=== PATIENT | female | born 1955 | race Caucasian/White ===

== ENCOUNTER → 2020-08-22 15:35 | Outpatient (CLI) | payer BC, SELFPAY ==
--- NOTE | 2020-08-22 | DI.RAD.S_ITS ---
PROCEDURE: XR LUMBAR SPINE 2-3V INDICATIONS: LOW BACK PAIN TECHNIQUE: 3 views of the lumbar spine were acquired. COMPARISON: None. FINDINGS: Bones: No fracture. Grade 1 anterolisthesis of L4 on L5. Multilevel degenerative endplate sclerosis and spurring. Diffuse facet arthropathy. Mild narrowing of the L4-L5 and L5-S1 disc space. Mild levocurvature Soft tissues: Overlying bowel gas pattern is normal. No suspicious soft tissue calcifications. IMPRESSION: Lower lumbar spondylosis and mild levocurvature. Grade 1 anterolisthesis of L4 on L5. Facet arthropathy . Dictated by: Sawyer Martinez M.D. on 08/22/2020 at 16:40 Approved by: Sawyer Martinez M.D. on 08/22/2020 at 16:41
== END ==
PROVIDERS: PCP Physician Assistant; Referring Provider Physician Assistant; Visit Provider Physician Assistant
DX: M54.5 Low back pain (principal); M47.816 Spondylosis without myelopathy or radiculopathy, lumbar region; M43.16 Spondylolisthesis, lumbar region
CPT/HCPCS: 72100

== ENCOUNTER → 2020-10-12 13:36 | Outpatient (CLI) | payer BC, SELFPAY ==
--- NOTE | 2020-10-12 | DI.MRI.S_ITS ---
PROCEDURE: MR LUMBAR SPINE WO CON INDICATIONS: radiculopathy TECHNIQUE: Noncontrast sagittal T1 spin echo and T2 fast echo, sagittal STIR, axial T1 and T2 fast spin echo through the lumbar spine. In cases with scoliosis, additional coronal T2 fast spin echo may be performed. COMPARISON: [facility], MR, MR THORACIC SPINE WO CON, 10/12/2020, 13:56. [facility], CR, XR LUMBAR SPINE 2-3V, 08/22/2020, 15:53. FINDINGS: Image quality: Excellent. Alignment and Curvature: Grade 1 L4-5 anterolisthesis is seen. Associated pars defects are not clearly observed. Bone Marrow: Marrow is of normal overall signal. Scattered foci are seen, which are hyperintense on T1-weighted and T2-weighted imaging, which are most consistent with benign vertebral body hemangiomas. No acute vertebral body compression fractures. Spinal Cord: Conus medullaris terminates at the L1 level. Visualized cord demonstrates normal signal and size. Paraspinous Soft Tissues: No paravertebral masses. T12-L1: Normal appearance. L1-L2: Normal appearance. L2-L3: The disc height and disk signal are well-preserved. Mild to moderate disc bulge is seen, with a mild central disc protrusion. Mild to moderate facet hypertrophy is seen. There is [id number] right-sided and no significant left-sided neural foraminal narrowing seen. Mild central canal narrowing is seen. L3-L4: The disc height is well-preserved. Loss of disc signal is seen at this level. Mild to moderate disc bulge is seen, with a central disc protrusion. Moderate facet joint hypertrophy is seen. Associated hypertrophy of the ligamentum flavum can be seen. There is size at the at least moderate right-sided and [id number] left-sided neural foraminal narrowing seen. Mild to moderate central canal narrowing can be seen. L4-L5: Mild loss of disc height is seen. Loss of disc signal is seen. There is a focal annular fissure seen posteriorly. Prominent facet hypertrophy is seen at this level. There is at least moderate bilateral neural foraminal narrowing seen at this level. Mild central canal narrowing is seen. L5-S1: The disc height is well-preserved. Loss of disc signal is seen at this level. There is a focal annular fissure seen posteriorly. Mild to moderate disc bulge is seen. Moderate facet joint hypertrophy is seen. Moderate bilateral neural foraminal narrowing is seen. Mild to moderate central canal narrowing is seen. IMPRESSION: Lumbar spine degenerative changes are seen, which are most prominent inferiorly. Dictated by: Matti Reyez M.D. on 10/12/2020 at 15:37 Approved by: Matti Reyez M.D. on 10/12/2020 at 15:41
--- NOTE | 2020-10-12 | DI.MRI.S_ITS ---
PROCEDURE: MR THORACIC SPINE WO CON INDICATIONS: radiculopathy TECHNIQUE: Noncontrast sagittal T1 spine echo and T2 fast spin echo, sagittal STIR, axial T1 and T2 fast spin echo through the thoracic spine. COMPARISON: [facility], , MR LUMBAR SPINE WO CON, 10/12/2020, 13:56. FINDINGS: Image quality: Diagnostic, with note made of motion artifact. Alignment and Curvature: Mild dextroconvex scoliotic curvature is seen. Accentuated thoracic kyphosis is seen. Bone Marrow: Marrow is of normal overall signal. Scattered foci are seen, which are hyperintense on T1-weighted and T2-weighted imaging, which are most consistent with benign vertebral body hemangiomas. No acute vertebral body compression fractures. Spinal Cord: Visualized spinal cord is normal in size and signal. Paraspinous Soft Tissues: No paravertebral masses. Miscellaneous: At the T6-T7 level, there is a central/left disc protrusion. No significant neural foraminal narrowing is seen. Macrometastasis central At T7-T8, there is loss of disc signal seen. Mild central/right disc bulge is seen. Minimal to mild central canal narrowing is seen. No significant neural foraminal narrowing can be seen. At T8-T9, there is moderate loss of disc height. Reactive marrow endplate changes are seen anteriorly, which are hypointense on T1-weighted imaging and hyperintense on T2 weighted imaging, which is most consistent with edema (Modic type I changes). No significant neural foraminal narrowing can be seen. At T9-T10, there is mild loss of disc height seen. Mild disc bulge is seen, with minimal central canal narrowing. No significant neural foraminal narrowing can be seen. Milder degenerative changes are seen elsewhere. IMPRESSION: Multiple levels of thoracic spine degenerative change are seen, which are worst at the T8-T9 level. Dictated by: Matti Reyez M.D. on 10/12/2020 at 15:42 Approved by: Matti Reyez M.D. on 10/12/2020 at 15:45
--- NOTE | 2020-10-12 13:39 | DI.US.S_ITS ---
PROCEDURE: US PELVIC COMPLETE INDICATIONS: PELVIC PAIN TECHNIQUE: Real-time scanning was performed of the pelvic organs, with image documentation. Additional endovaginal scanning was necessary due to incomplete visualization of the adnexal and endometrial structures by transabdominal scanning. COMPARISON: None. FINDINGS: Uterus: Uterus is normal in size at 5.2 x 3.8 x 3.1 cm. The endometrium measures 2-3 mm in combined thickness. There is minimal simple appearing fluid seen within the endometrial cavity. Uterus suboptimally evaluated secondary to retroversion. Ovaries: Right ovary measures 3.1 x 3.0 x 1.2 cm and is unremarkable. The left ovary measures 2.2 x 1.4 x 0.9 cm. There is a dominant left-sided ovarian follicle measuring 9 mm . Other: No pathologic free abdominal or pelvic fluid. IMPRESSION: Overall, unremarkable examination as above. Dictated by: Sawyer Martinez M.D. on 10/12/2020 at 17:23 Approved by: Sawyer Martinez M.D. on 10/12/2020 at 17:25
== END ==
PROVIDERS: PCP Physician Assistant; Referring Provider Physician Assistant; Visit Provider Physician Assistant
DX: M47.26 Other spondylosis with radiculopathy, lumbar region (principal); R10.2 Pelvic and perineal pain; M47.24 Other spondylosis with radiculopathy, thoracic region; Z13.820 Encounter for screening for osteoporosis; M85.851 Other specified disorders of bone density and structure, right thigh; Z78.0 Asymptomatic menopausal state
CPT/HCPCS: 72146; 72148; 76830; 76856; 77080

== ENCOUNTER → 2024-07-20 11:01 | Outpatient (CLI) | payer MEDICARE, BC, SELFPAY ==
--- NOTE | 2024-07-20 11:02 | DI.MRI.S_ITS ---
PROCEDURE: MR HEAD/BRAIN WO/W CON INDICATIONS: ongoing and progressing posterior head pain when supine TECHNIQUE: Noncontrast axial T1 spin echo, axial T2 fast spin echo, sagittal and axial FLAIR, coronal T2 fast spin echo, axial gradient echo, axial diffusion and ADC through the brain. After the administration of contrast, axial and coronal and sagittal 3D VIBE or T1 spin echo with fat saturation through the brain. COMPARISON: None. FINDINGS: CSF Spaces: Basal cisterns are patent. No extra-axial fluid collections. Ventricles are normal in size and shape. Brain: No intracranial masses or hemorrhage. Joseph/white matter interface is normal. Brainstem appears normal. Diffusion-weighted sequence is unremarkable without evidence of acute infarct. Normal intravascular flow voids are present. Skull and face: Calvarial marrow is normal in signal. Orbits appear normal. Sinuses: Sinuses and mastoids appear clear. IMPRESSION: Unremarkable MRI of the brain Approved by: Kyle Bass M.D. on 07/20/2024 at 12:14
--- NOTE | 2024-07-20 11:02 | DI.RAD.S_ITS ---
PROCEDURE: XR DEXA AXIAL SKELETON INDICATIONS: bone density screening COMPARISON: [facility], CR, XR DEXA AXIAL SKELETON, 10/12/2020, 15:09. FINDINGS: Lumbar Spine: Bone mineral density 0.80 findings g/cm2, T score -1.9. Prior DEXA was performed using dissimilar scan type or analysis method. Left Femoral Neck: Bone mineral density is 0.580 g/cm2, T score -2.4. Left Hip: Bone mineral density 0.658 g/cm2, T score -2.3. Prior DEXA was performed using dissimilar scan type or analysis method. Fracture Risk Calculation (when applicable): 10-year fracture risk of a major osteoporotic fracture 12 % and of a hip fracture 2.6 %. (T score greater or equal to -1.0 to: NORMAL) (T score from -1.1 to -2.4: OSTEOPENIA) (T score less than or equal to -2.5: OSTEOPOROSIS) IMPRESSION: By WHO criteria, patient has osteopenia. Follow-up guidelines as follows: Osteoporosis: Consider a repeat DEXA and Vertebral Fracture Assessment (VFA) exam in 2 years or sooner if medically necessary, to reassess this patient's status. Osteopenia: Consider a repeat DEXA in 2-3 years to reassess this patient's status, or if there is a new clinical indication. Normal: Consider a repeat DEXA in 5 years or sooner, or if there is a new clinical indication. All treatment decisions require clinical judgment and consideration of individual patient factors, including patient preferences, comorbidities, previous drug use, risk factors not captured in the FRAX model (e.g., frailty, falls, vitamin D deficiency, increased bone turnover, interval significant decline in bone density ) and possible under- or over-estimation of fracture risk by FRAX. In addition, the NOF Guide recommends that FDA-approved medical therapies be considered in postmenopausal women and men age >= 50 years with a: * Hip or vertebral (clinical or morphometric) fracture * T-score of <=-2.5 at the spine or hip * Ten-year fracture probability by FRAX of >= 3% for hip fracture or >=20% for major osteoporotic fracture. Approved by: Abhishek Cordon M.D. on 07/20/2024 at 20:29
== END ==
PROVIDERS: PCP Family Medicine; Referring Provider Physician Assistant; Visit Provider Physician Assistant
DX: M85.89 Other specified disorders of bone density and structure, multiple sites (principal); R51.9 Headache, unspecified; Z78.0 Asymptomatic menopausal state
CPT/HCPCS: 70553; 77080; A9579